=== PATIENT | male | born 1975 | race African-American/Black ===

== ENCOUNTER 2021-05-10 01:13 | Emergency (ER) | payer MEDICAID ==
[~2021-05-10] VITALS: Ht 188 cm; Wt 91.0 kg
[2021-05-10 01:20] VITALS: BP 164/108
[2021-05-10] MEDS ORDERED: IPRATROPIUM/ALBUTEROL 0.5-3(2.5)MG/3ML NEB HHN ONE ×2 (02:45)
[2021-05-10] MEDS ORDERED: ALBU18HF2 IH (03:36)
== END 2021-05-10 03:40 | disposition home or self-care (01) ==
LOC: ER 01:13
DX: J45.901 Unspecified asthma with (acute) exacerbation (principal); I10 Essential (primary) hypertension
CPT/HCPCS: 94640; 99283; Z7610